=== PATIENT | female | born 1955 | race Caucasian/White ===

== ENCOUNTER 2018-06-11 15:42 | Emergency (ER) | payer OTHER, BC ==
[~2018-06-11] VITALS: Ht 165.1 cm; Wt 96.4 kg
[~2018-06-11 15:42] MED LIST: ASPIRIN 81M81 MG/TA2 PO; FLEXERIL 1010 MG/TAB PO; LIPITOR 10MG10 MG PO; NORCO 325 MG-7.1 TAB PO; PAXIL 10MG10 MG PO; PROAIR HFA0.09 MG/AC IH; PROTONIX 40MG T40 MG PO; PROVENTIL0.09 MG/A1 IH; RT ADVAIR 228 DISKUS IH; SINGULAIR 110 MG/TAB PO; XOPENEX 1.1.25 MG/3 IH
[2018-06-11 15:47] VITALS: TEMP 98.6
[2018-06-11] MEDS ORDERED: REQUIP2 MG PO (15:55)
[2018-06-11 16:23] LABS: BASO % 0.2 % (0.0-2.0); EOS # 0.1 (0.0-0.7); EOS % 0.5 % (0-4.0); GRAN # 11.7 (1.4-6.5); GRAN % 76.7 % (42.2-75.2); HEMATOCRIT 38.1 % (37.0-47.0); HEMOGLOBIN 12.9 g/dl (12.5-16.0); LYMPH % 13.1 % (20.0-51.0); MEAN CELL VOLUME 89 fl (80.0-100.0); MEAN CORPUSCULAR HEMOGLOBIN 30 pg (27.0-31.0); MEAN CORPUSCULAR HGB CONC 34 g/dl (33.0-37.0); MEAN PLATELET VOLUME 9.3 fl (7.4-10.4); MONO # 1.4 (0.1-0.6); PLATELET COUNT 243 K/mm3 (130-400); REDCELL DISTRIBUTION WIDTH-CV 12.4 % (11.5-14.5)
[2018-06-11 16:31] LABS: ALBUMIN 3.9 gm/dL (3.5-5.0); BILIRUBIN,TOTAL 0.8 mg/dL (0.0-1.0); CALCIUM 9.4 mg/dL (8.4-10.2); CREATININE, serum 0.57 mg/dL (0.52-1.25); POTASSIUM 3.9 mmol/L (3.4-5.0)
[2018-06-11] MEDS ORDERED: NEURONTIN300 MG/CAP PO (16:39)
[2018-06-11] MEDS ORDERED: LOPRESSOR 225 MG/TAB PO (16:40)
[2018-06-11] MEDS ORDERED: NEURONTIN600 MG/TAB PO (17:21)
[2018-06-11] MEDS ORDERED: CYMBALTA 60MG60 MG PO (17:26)
[2018-06-11 17:45] VITALS: BP 117/63; PULSE 106
== END 2018-06-11 18:24 | disposition short-term general hospital (02) ==
LOC: COL.ER 15:42
PROVIDERS: Emergency Medicine
DX: S32.82XA Multiple fractures of pelvis without disruption of pelvic ring, initial encounter for closed fracture (principal); M79.7 Fibromyalgia; Z79.82 Long term (current) use of aspirin; Z79.891 Long term (current) use of opiate analgesic; Z88.6 Allergy status to analgesic agent; V89.2XXA Person injured in unspecified motor-vehicle accident, traffic, initial encounter
CPT/HCPCS: J2270; Q9967

== ENCOUNTER 2018-08-02 14:36 | Inpatient (IN) | payer OTHER, BC ==
[~2018-08-02] VITALS: Ht 165.1 cm; Wt 95.7 kg
[~2018-08-02 14:36] MED LIST changes: +CYMBALTA 60MG60 MG PO; -LIPITOR 10MG10 MG PO; +LIPITOR20 MG PO; +LOPRESSOR 225 MG/TAB PO; +NEURONTIN300 MG/CAP PO; +NEURONTIN600 MG/TAB PO; +REQUIP4 MG PO
[2018-08-02 17:02] VITALS: BP 128/67; PULSE 95; TEMP 98.7
[2018-08-02] MEDS ORDERED: TUMS500 MG PO (20:14)
[2018-08-02] MEDS ORDERED: ZOFRAN ODT4 MG PO (20:16)
[2018-08-02] MEDS ORDERED: ROXICODONE 55 MG/TAB PO (20:17)
[2018-08-02] MEDS ORDERED: TYLENOL 325MG325 MG PO (20:18)
[2018-08-02] MEDS ORDERED: ASPIRIN 32325 MG/TA1 PO (20:20)
[2018-08-02] MEDS ORDERED: SENOKOT S 50 MG1 TAB PO (20:21)
[2018-08-02] MEDS ORDERED: MELAT3MGTAB PO (20:24)
[2018-08-02] MEDS ORDERED: LEADER CLE17 GM/Dose PO (20:26)
[2018-08-02] MEDS ORDERED: MULTIVITAMIN SEN PO (20:27)
[2018-08-02] MEDS ORDERED: CALCIUM 600/VIT1 CAP PO (20:29)
[2018-08-03 06:45] VITALS: BP 129/68; PULSE 72; TEMP 98
[2018-08-03 07:35] LABS: BASO % 0.4 % (0.0-2.0); EOS # 0.4 (0.0-0.7); EOS % 4.5 % (0-4.0); GRAN # 5.2 (1.4-6.5); GRAN % 57.9 % (42.2-75.2); HEMATOCRIT 39.6 % (37.0-47.0); HEMOGLOBIN 12.6 g/dl (12.5-16.0); LYMPH # 2.6 (1.2-3.4); LYMPH % 29.1 % (20.0-51.0); MEAN CELL VOLUME 90 fl (80.0-100.0); MEAN CORPUSCULAR HEMOGLOBIN 29 pg (27.0-31.0); MEAN CORPUSCULAR HGB CONC 32 g/dl (33.0-37.0); MEAN PLATELET VOLUME 9.1 fl (7.4-10.4); MONO # 0.7 (0.1-0.6); MONO % 7.5 % (1.7-9.3); PLATELET COUNT 361 K/mm3 (130-400); RED BLOOD COUNT 4.39 M/mm3 (4.10-5.30); REDCELL DISTRIBUTION WIDTH-CV 14.3 % (11.5-14.5)
[2018-08-03 07:53] LABS: ALBUMIN 3.7 gm/dL (3.5-5.0); BILIRUBIN,TOTAL 0.8 mg/dL (0.0-1.0); CALCIUM 9.3 mg/dL (8.4-10.2); CREATININE, serum 0.48 mg/dL (0.52-1.25); MAGNESIUM 1.7 mg/dL (1.6-2.3); POTASSIUM 3.9 mmol/L (3.4-5.0)
[2018-08-03 18:20] VITALS: BP 113/51; PULSE 80; TEMP 98.4
[2018-08-04 03:36] VITALS: BP 112/58; PULSE 68; TEMP 98.5
[2018-08-04 16:37] VITALS: BP 116/48; PULSE 72; TEMP 97.7
[2018-08-05 05:56] VITALS: BP 123/73; PULSE 82; TEMP 98.2
[2018-08-05] MEDS ORDERED: ROXICODONE 55 MG/TAB PO (10:17)
[2018-08-05 16:21] VITALS: BP 100/41; PULSE 76; TEMP 98.5
[2018-08-06 03:54] VITALS: BP 111/48; PULSE 66; TEMP 98.3
[2018-08-06 18:28] VITALS: BP 127/61; PULSE 76; TEMP 98
[2018-08-07 05:26] VITALS: BP 130/57; PULSE 78; TEMP 98.7
[2018-08-07 18:40] VITALS: BP 123/60; PULSE 86; TEMP 98.6
[2018-08-08 05:22] VITALS: BP 136/84; PULSE 76; TEMP 98.1
[2018-08-08 17:46] VITALS: BP 127/59; PULSE 79; TEMP 98
[2018-08-09 06:24] VITALS: BP 129/58; PULSE 71; TEMP 97.8
[2018-08-09 18:00] VITALS: BP 119/87; PULSE 86; TEMP 98.4
[2018-08-10 03:53] VITALS: BP 104/46; PULSE 76; TEMP 98.1
[2018-08-10] MEDS ORDERED: DESENEX TP (09:41)
[2018-08-10] MEDS ORDERED: DESITIN DIAPER120 GM TP (09:41)
[2018-08-10] MEDS ORDERED: TOPROL XL 25MG25 MG PO (09:43)
== END 2018-08-10 14:15 | disposition home or self-care (01) | DRG 561 ==
PROVIDERS: Internal Medicine
DX: M80.052D Age-related osteoporosis with current pathological fracture, left femur, subsequent encounter for fracture with routine healing (principal); M80.051D Age-related osteoporosis with current pathological fracture, right femur, subsequent encounter for fracture with routine healing; S32.811D Multiple fractures of pelvis with unstable disruption of pelvic ring, subsequent encounter for fracture with routine healing; V49.60XD Unspecified car occupant injured in collision with unspecified motor vehicles in traffic accident, subsequent encounter; I10 Essential (primary) hypertension; M79.7 Fibromyalgia; G25.81 Restless legs syndrome; E78.5 Hyperlipidemia, unspecified; D64.9 Anemia, unspecified
CPT/HCPCS: 99222-AI; 99232-AI; 99239; J1650

== ENCOUNTER 2019-12-11 16:30 | Inpatient (IN) | payer MEDICARE ==
[~2019-12-11] VITALS: Ht 165.1 cm; Wt 118.9 kg
[~2019-12-11 16:30] MED LIST changes: +ASPIRIN 32325 MG/TA1 PO; +CALCIUM 600/VIT1 CAP PO; +DESENEX TP; +DESITIN DIAPER120 GM TP; +LEADER CLE17 GM/Dose PO; +MELAT3MGTAB PO; +MULTIVITAMIN SEN PO; +ROXICODONE 55 MG/TAB PO; +SENOKOT S 50 MG1 TAB PO; +TOPROL XL 25MG25 MG PO; +TUMS500 MG PO; +TYLENOL 325MG325 MG PO; +ZOFRAN ODT4 MG PO
[2019-12-12] VITALS (10 sets, daily range): BP systolic 98–124; BP diastolic 41–72; PULSE 64–76; TEMP 97.4–98.4
--- NOTE | 2019-12-12 09:10 | NUR ---
TO RM AT 0803 - ALERT ORIENTED X3, VERBALIZED UNDERSTANDING AND SIGNED CONSENT. EDEMA L HAND WITH WITH ABDUCTOR SLING IN PLACE. LOWER LEGS EDEATOUS BILAT. CAT SCRATCHES ON R HAND AND LOWER LEGS. (THE KITTEN CRAWLS UP MY LEGS)
[2019-12-12] MEDS ORDERED: LOPRESSOR 225 MG/TAB PO (09:31)
[2019-12-12] MEDS ORDERED: RT ADVAIR 228 DISKUS IH (09:35)
[2019-12-12] MEDS ORDERED: PERCOCET 325 MG1 TA2 PO (09:40)
[2019-12-12] MEDS ORDERED: CALCIUM CITRAT950 MG PO (09:45)
[2019-12-12] MEDS ORDERED: LASIX 40MG TABL40 MG PO (09:49)
[2019-12-12] MEDS ORDERED: LIPITOR20 MG PO (09:56)
--- NOTE | 2019-12-12 09:56 | NUR ---
PATIENT BROUGHT IN A BAG OF HER MEDS. I PLACED IN COMPUTER THE MEDS SHE IS CURRENTLY TAKING. THE LIST SHE BROUGHT HAD ADDITIONAL MEDS LISTED. I EXPLAINED INFORMED OF THIS AND HE AGREED A FEW OF THE MEDS ON MED LIST SHE WAS NOT TAKING.
[2019-12-12 15:46] LABS: HEMATOCRIT 32.3 % (37.0-47.0); HEMOGLOBIN 10.1 g/dl (12.5-16.0)
--- NOTE | 2019-12-12 19:00 | NUR ---
Patient has been very drowsy since getting back from surgery. Her left arm is starting to wake up and her pain is picking up. senior court office assistant nurse to treat pain. Emptied 120ml from hemavac. Dressing to left arm is C/D/I. Sling is on. No other changes at this time. Call light alma bailey.
--- NOTE | 2019-12-12 22:14 | NUR ---
Pt assessment compelted. She is doing ok. Does have increasing amount of pain per pt report. PRN pain medicine given to her. Pt is alert and oriented with VSS. Pt uses bedpan, states she is too scared to get to commode. Encouraged her it is important to get up and moving despite pain. Pt has aquacell on left shoulder with sling and ice pack. Hemovac drain as well, moderate amount of blood drainage. Pt on 02 at 3L. Pt reports she is not diabetic and was not happy when we checked her sugars, states she is going to call her pcp in am. Call light within reach, will continue to monitor
[2019-12-13] VITALS (12 sets, daily range): BP systolic 95–136; BP diastolic 39–56; PULSE 65–89; TEMP 97–98.6
--- NOTE | 2019-12-13 02:00 | NUR ---
Pt refused to get out of bed even with encouragement of nursing. Pt stated it is too painful
--- NOTE | 2019-12-13 04:14 | NUR ---
External catheter applied to patient, states she has too much pain using bed law.
--- NOTE | 2019-12-13 04:43 | NUR ---
Pt sleeping in bed with cpap on. Seems to be comfortable. Pressures are soft but stable. Call light within reach, will continue to monitor
--- NOTE | 2019-12-13 05:58 | NUR ---
Pt bp still soft, lowest of 81/33, now it is 95/44. Pt is asymmptomatic. ship's carpenter notified, and will await for Cristal to round as patient is not having any symptoms. She is alert and oriented with other VSS.
--- NOTE | 2019-12-13 06:05 | NUR ---
Pt requesting pain medication. This nurse advised patient that with her pressures being low we would like to hold off until we can get them stable. Pt insisted she wanted her pain meds despite knowing it could potentially drop bp
[2019-12-13 07:35] LABS: HEMATOCRIT 27.8 % (37.0-47.0); HEMOGLOBIN 8.6 g/dl (12.5-16.0)
--- NOTE | 2019-12-13 10:26 | NUR ---
Initial visit; Patient thanked Window Decorator for looking in on her, visiting and offering spiritual care.
--- NOTE | 2019-12-13 17:29 | NUR ---
Ribbon Weaver met with patient to discuss discharge planning. Patient lives in [place] with her , Enrique (ph#[phone]). Patient sees Dr. Ortiz for primary care and obtains medications from [facility]. Patient has a cane and wheelchair available at home for use. Patient also states she has new toilets that are raised. Patient reports she has DPOA-HC but SW did not locate copy in EMR. Patient states she plans to go to [facility] upon discharge. SW presented Patient Preference Form and patient provided signature that [place] [facility] was first and only preference. SW contacted Yennifer at [facility] and faxed referral. Patient states Enrique can provide transportation to via private vehicle. SW to continue to follow.
--- NOTE | 2019-12-13 18:30 | NUR ---
After getting up with PT this am, patient has been doing well. She sat in the chair most the day. She ambulated in the room with help from the FLAME ANNEALING MACHINE SETTER's. Her pain has been well controlled. CMS intact to left arm. Dressings to left shoulder remain C/D/I. No other changes at this time. Call light within reach.
--- NOTE | 2019-12-13 20:37 | NUR ---
Report given to SANJUANITA Rosales
[2019-12-14 03:46] VITALS: BP 127/56; PULSE 79; TEMP 98.1
[2019-12-14 07:20] LABS: HEMOGLOBIN 8.4 g/dl (12.5-16.0)
[2019-12-14 07:47] VITALS: BP 142/58; PULSE 95; TEMP 98.5
[2019-12-14 11:36] VITALS: BP 109/46; PULSE 74; TEMP 98.6
--- NOTE | 2019-12-14 11:55 | NUR ---
Group Home Supervisor faxed updates to Yennifer (ph#[phone]) at [facility]. [facility] was contacted by Yennifer who reports they are able to accept referral. DAKOTA will continue to follow on discharge date. DAKOTA provided confirmation to Yennifer that patient's will provide transportation upon discharge.
--- NOTE | 2019-12-14 14:32 | NUR ---
Qa Test Analyst spoke with RN, Lucy who advised discharge likely tomorrow. SW met with patient to notify her that [facility] accepted. DKAOTA contacted Yennifer at [facility] to notify her that discharge is likely tomorrow pending any changes. Yennifer reports Dr. Griffin Darby is accepting physician and report # is [phone]. RN report # is [phone]. DAKOTA placed report numbers on patient chart.
[2019-12-14 16:06] VITALS: BP 115/41; PULSE 74; TEMP 98.7
--- NOTE | 2019-12-14 18:30 | NUR ---
Patient has been doing well today. Minimal complaints of pain. No complaints of nausea. Patient is planning to discharge to [facility] tomorrow. She has been moving more today but still needs some assistance with walking and ambulation. She stated her legs and ankles hurt. No other changes at this time. Call light within reach.
[2019-12-14 19:59] VITALS: BP 109/58; PULSE 76; TEMP 98.5
--- NOTE | 2019-12-14 20:30 | NUR ---
PATIENT RESTING IN BED DURING SHIFT CHANGE REPORT GIVEN TO DAY SHIFT NURSE. NO NEEDS REPORTED.
[2019-12-14 22:07] VITALS: BP 130/42; PULSE 78; TEMP 99.3
--- NOTE | 2019-12-15 00:30 | NUR ---
PATIENT RESTING WITH EYES CLOSED, DOES NOT AWAKEN WHEN ROOM ENTERED.
[2019-12-15 05:12] VITALS: BP 111/49; PULSE 65; TEMP 98.1
--- NOTE | 2019-12-15 07:45 | NUR ---
PATIENT RESTING IN BED DURING SHIFT CHANGE REPORT GIVEN TO DAY SHIFT NURSE. NO NEEDS REPORTED.
[2019-12-15 08:18] VITALS: BP 139/50; PULSE 83; TEMP 98.4
[2019-12-15 08:22] LABS: HEMATOCRIT 27.2 % (37.0-47.0); HEMOGLOBIN 8.5 g/dl (12.5-16.0)
--- NOTE | 2019-12-15 09:12 | NUR ---
Sitting up in chair with eyes open watching TV. Rates pain in left shoulder 2/10 and describes as a dull ache. Left arm in immobilizer. Dressing to left shoulder CDI. CMS intact. Patient denies needs at this time.
[2019-12-15 10:25] VITALS: BP 139/50; PULSE 83; TEMP 98.4
--- NOTE | 2019-12-15 10:25 | NUR ---
Rating pain 6/10 in left shoulder. Percocet administered as prescribed per patient request.
--- NOTE | 2019-12-15 10:41 | NUR ---
Report given to SANJUANITA Christina, at [facility].
--- NOTE | 2019-12-15 11:48 | NUR ---
Patient ready to be discharged at this time. Patient spouse here to drive patient to [facility]. Transfer packet provided to the patient . Patient escorted to [facility] by YRIS George, at this time.
--- NOTE | 2019-12-15 11:53 | NUR ---
Message left for Carri RN at [facility], to let her know that patient is being discharged at this time.
--- NOTE | 2019-12-15 11:59 | NUR ---
Scrubbing Machine Operator met with patient as she is to discharge to [facility] today. SW presented and explained IM form to patient who verbalized understanding and provided signature. Patient declined being provided a copy and DAKOTA placed form on chart. Patient will contact her , Enrique who will provide transportation by private vehicle. DAKOTA contacted Dr. Bee and provided report number for Dr. Darby. DAOKTA contacted Yennifer at [facility] and faxed discharge orders. No additional needs at this time.
== END 2019-12-15 11:53 | disposition swing bed (61) | DRG 493 ==
LOC: SURG 12-12 07:55 → INPTSU 12-12 07:55 → SURG 12-12 10:30
PROVIDERS: Nurse Anesthetist, Certified Registered; ADMIT Orthopaedic Surgery Sports Medicine
PROC: 0PSG04Z Reposition Left Humeral Shaft with Internal Fixation Device, Open Approach (ICD-10-PCS; principal; 2019-12-12 10:30)
DX: S42.352A Displaced comminuted fracture of shaft of humerus, left arm, initial encounter for closed fracture (principal); M97.32XA Periprosthetic fracture around internal prosthetic left shoulder joint, initial encounter; Z96.612 Presence of left artificial shoulder joint; J45.909 Unspecified asthma, uncomplicated; F32.9 Major depressive disorder, single episode, unspecified; I48.91 Unspecified atrial fibrillation; M79.7 Fibromyalgia; E78.00 Pure hypercholesterolemia, unspecified; M81.0 Age-related osteoporosis without current pathological fracture; I10 Essential (primary) hypertension; J44.9 Chronic obstructive pulmonary disease, unspecified; G89.29 Other chronic pain; M19.90 Unspecified osteoarthritis, unspecified site; G47.33 Obstructive sleep apnea (adult) (pediatric); Z98.42 Cataract extraction status, left eye; Z98.41 Cataract extraction status, right eye; Z87.01 Personal history of pneumonia (recurrent); Z90.710 Acquired absence of both cervix and uterus; Z87.891 Personal history of nicotine dependence
CPT/HCPCS: A9284; C1713; J0690; J1170; J2250; J2370; J2704; J2795; J3010; J3370; J7050; J7120